=== PATIENT | female | born 1975 | race Caucasian/White ===

== ENCOUNTER → 2020-06-06 | Emergency (ER) | payer SELFPAY ==
[~2020-06-06] VITALS: Ht 149.9 cm; Wt 75.3 kg
[~2020-06-06] MED LIST: IBUPROFEN 600 MG TABLET ONE
[2020-06-06 17:28] VITALS: BP 145/77
[2020-06-06] MEDS: IBUPROFEN 600 MG TABLET PO ONE (18:02)
--- NOTE | 2020-06-06 18:20 | NUR ---
JAKE BILLINGS AT BED SIDE
--- NOTE | 2020-06-06 18:20 | NUR ---
EMT at bedside apply immobilizer on affected area
--- NOTE | 2020-06-06 18:40 | NUR ---
Patient discharged to home in stable condition. Written and verbal after care instructions given. Patient verbalizes understanding of instruction.
== END | disposition home or self-care (01) ==
LOC: ER 17:48
DX: S62.616A Displaced fracture of proximal phalanx of right little finger, initial encounter for closed fracture (principal); E11.9 Type 2 diabetes mellitus without complications; Z90.89 Acquired absence of other organs; Z90.710 Acquired absence of both cervix and uterus; W18.39XA Other fall on same level, initial encounter; Y93.K1 Activity, walking an animal; Y92.89 Other specified places as the place of occurrence of the external cause; Y99.8 Other external cause status
CPT/HCPCS: 73140-TC